=== PATIENT | female | born 1985 | race Caucasian/White ===

== ENCOUNTER 2016-07-14 20:23 | Emergency (ER) | payer MEDICAID ==
[~2016-07-14] VITALS: Ht 152.4 cm; Wt 72.6 kg
[~2016-07-14 20:23] MED LIST: ACHD5005 PO; CEPH500C PO; DCS100C PO; FLUO20CA25 PO; HYDR-1231 PO; IBP600T1 PO; LANS30CA8 PO; LORA-877 PO; ONDA8TAB13 PO; PERM60CR10 TP; PREN1TAB25 PO; [UNRECOGNIZED DRUG - OTHER]
[2016-07-14] MEDS ORDERED: diphenhydrAMINE 50 MG/ML INJ (BENADRYL) IVP ONE (21:00)
[2016-07-14] MEDS ORDERED: DEXAMETHASONE PF 10 MG/ML (DECADRON) VIAL IV ONE (21:00)
[2016-07-14] MEDS ORDERED: KETOROLAC 30 MG/ML VIAL IVP ONE (21:00)
[2016-07-14] MEDS ORDERED: PROCHLORPERAZINE 10 MG/2ML INJ (COMPAZINE) IV ONE (21:00)
[2016-07-14] MEDS ORDERED: NS IV 1000 ML 1,000 ML IV SCH (21:00)
--- NOTE | 2016-07-14 21:01 | ED Headache ---
General Chief Complaint: Head/Cervical Problems Stated Complaint: MIGRANE Source: patient Exam Limitations: no limitations History of Present Illness Time seen by provider: 20:59 Initial Comments To ER with reports of a migraine that began this evening at around 6 p.m. She reports that she has a history of migraines. She has headaches nearly daily but is able to take care of these with Tylenol and Motrin and other over-the- counter medications. She is only had to go to the hospital which was in [facility] one time for abortive therapy for her migraines. She is on no daily medication of any sort. She does have an IUD. No fevers or chills or head trauma. This headache is similar to previous headaches, only more intense. She does have associated nausea and vomiting, minor photophobia. Timing/Duration: 1-3 hours Severity/Quality: severe Location: global Prior Headaches/Recent Trauma: no recent headache/trauma Associated Symptoms: denies symptoms Allergies and Home Medications Allergies Coded Allergies: No Known Drug Allergies (Unverified , 07/14/16) Home Medications Ibuprofen 600 Mg Tab, 600 MG PO Q6H, #40 Prescribed by: JULIA MARTINES on 08/16/14 0630 Constitutional: see HPI Eyes: No Symptoms Reported Ears, Nose, Mouth, Throat: no symptoms reported Respiratory: no symptoms reported Cardiovascular: no symptoms reported Genitourinary: no symptoms reported Musculoskeletal: no symptoms reported Skin: see HPI Psychiatric/Neurological: See HPI, Headache Past Lpjjxtx-Bpefcg-Xmsohe Hx Patient Social History Recent Foreign Travel: No Contact w/Someone Who Travel: No Immunizations Up To Date Tetanus Booster (TDap): More than 5yrs Date of Influenza Vaccine: Jan 16, 2014 Seasonal Allergies Seasonal Allergies: No Surgeries HX Surgeries: Yes Surgeries: Appendectomy, Section Respiratory Hx Respiratory Disorders: No Cardiovascular Hx Cardiac Disorders: No Neurological Hx Neurological Disorders: No Reproductive System Hx Reproductive Disorders: No (1 miscarrriage) Genitourinary Hx Genitourinary Disorders: No Gastrointestinal Hx Gastrointestinal Disorders: Yes Gastrointestinal Disorders: Chronic Constipation Musculoskeletal Hx Musculoskeletal Disorders: No Endocrine Hx Endocrine Disorders: No HEENT HX ENT Disorders: No Cancer Hx Cancer: No Psychosocial Hx Psychiatric Problems: Yes Behavioral Health Disorders: Anxiety, Depression Integumentary HX Skin/Integumentary Disorder: No Blood Transfusions Hx Blood Disorders: No Family Medical History Family Medial History: Alcoholism 19 FATHER Diabetes mellitus G8 BROTHER Seizure disorder 19 MOTHER No Family History of: Alzheimer's disease Arthritis Asthma Cancer of mouth Cardiovascular disease Cataracts Colon cancer Completed stroke Dementia Drug abuse Glaucoma Hypertension Kidney disease Myocardial infarction Parkinson's disease Prostate cancer Psychosocial problem Respiratory disorder Severe allergy Thyroid disease Tuberculosis Visual disorder Physical Exam Vital Signs Vital Sign - Last 12Hours 07/14/16 20:55 Temp 97.8 Pulse 103 Resp 20 B/P (MAP) 155/105 Pulse Ox 97 O2 Delivery Room Air Capillary Refill : General Appearance: WD/WN, mild distress, other (actively vomiting) HEENT: PERRL/EOMI, normal ENT inspection, TMs normal, pharynx normal Neck: non-tender, full range of motion Cardiovascular: regular rate, rhythm, no murmur Respiratory: normal breath sounds, no respiratory distress, no accessory muscle use Gastrointestinal: normal bowel sounds, non tender, soft Extremities: normal range of motion, non-tender, normal inspection Psychiatric: alert, oriented x 3 Crainal Nerves: normal hearing, normal speech, PERRL Skin: normal color, warm/dry Progress/Results/Core Measures Results/Orders My Orders Orders - JOHANNA KEEN APRN Ct Head Wo (07/14/16 20:58) Saline Lock/Iv-Start (07/14/16 20:58) Ns Iv 1000 Ml (Sodium Chloride 0.9%) (07/14/16 21:00) Dexamethasone Pf Injection (Decadron Pf (07/14/16 21:00) Prochlorperazine Injection (Compazine In (07/14/16 21:00) Diphenhydramine Injection (Benadryl Inje (07/14/16 21:00) Ketorolac Injection (Toradol Injection) (07/14/16 21:00) Medications Given in ED Current Medications Medications Dose Ordered Sig/Rajesh Route Start Time Stop Time Status Last Admin Dose Admin Dexamethasone Sodium Phosphate 10 mg ONCE ONCE IV 07/14/16 21:00 07/14/16 21:01 DC 07/14/16 21:13 10 MG Diphenhydramine HCl 25 mg ONCE ONCE IVP 07/14/16 21:00 07/14/16 21:01 DC 07/14/16 21:10 25 MG Ketorolac Tromethamine 30 mg ONCE ONCE IVP 07/14/16 21:00 07/14/16 21:01 DC 07/14/16 21:09 30 MG Prochlorperazine Edisylate 5 mg ONCE ONCE IV 07/14/16 21:00 07/14/16 21:01 DC 07/14/16 21:11 5 MG Vital Signs/I&O Vital Sign - Last 12Hours 07/14/16 20:55 Temp 97.8 Pulse 103 Resp 20 B/P (MAP) 155/105 Pulse Ox 97 O2 Delivery Room Air Diagnostic Imaging Diagonstic Imaging: CT Comments NAME: NOEL ARRIAGA [employer] REC#: [id number] PT STATUS: REG ER : 1985 PHYSICIAN: JOHANNA KEEN APRN ADMIT DATE: 07/14/16/ER Draft Date of Exam:07/14/16 CT HEAD WO PROCEDURE: CT head without contrast. TECHNIQUE: Multiple contiguous axial images were obtained through the brain without the use of intravenous contrast. INDICATION: Severe migraine headache. COMPARISON: None. DISCUSSION: No intracranial hemorrhage, mass, midline shift, or hydrocephalus. The ventricles and sulci are normal size and configuration for age. The visualized orbits, paranasal sinuses, mastoid air cells, and calvarium are unremarkable. IMPRESSION: 1. Normal head CT. Dictated on workstation # [id number] Dict: 07/14/162136 Trans: 07/14/162139 [facility] [id number] Interpreted by: YARON ARMIJO MD Electronically signed by: Departure Communication Progress Notes 21.49- patient states that she is feeling much better and is ready to go home Impression Impression: Primary Impression: Headache Disposition: HOME, SELF-CARE Condition: Improved Departure-Patient Inst. Decision time for Depature: 21:01 Referrals: NO,LOCAL PHYSICIAN (PCP) Primary Care Physician NISH TERESA DO Patient Instructions: Migraine Headache (DC) Add. Discharge Instructions: 1. Call Dr. Teresa or one of her partners at the [facility] (they all have the same phone number) to make an appointment to be seen tomorrow. You may benefit from being on a daily medication to prevent these migraines 2. Return to ER for any concerns as fevers, recurrent intolerable headache, nausea vomiting or other concerns. All discharge instructions reviewed with patient and/or family. Voiced understanding. JOHANNA KEEN APRN July 14, 2016 21:01
--- NOTE | 2016-07-14 21:41 | Diagnostic Imaging Report ---
PROCEDURE: CT head without contrast. TECHNIQUE: Multiple contiguous axial images were obtained through the brain without the use of intravenous contrast. INDICATION: Severe migraine headache. COMPARISON: None. DISCUSSION: No intracranial hemorrhage, mass, midline shift, or hydrocephalus. The ventricles and sulci are normal size and configuration for age. The visualized orbits, paranasal sinuses, mastoid air cells, and calvarium are unremarkable. IMPRESSION: 1. Normal head CT. Dictated by: Dictated on workstation # [id number]
[2016-07-14 21:55] VITALS: BP 107/64
== END 2016-07-14 21:55 | disposition home or self-care (01) ==
LOC: EDUNIT# 20:23 → ER 20:25
DX: R51 Headache (principal)
CPT/HCPCS: 70450; 96361; 96374; 96375